=== PATIENT | female | born 1940 | race Caucasian/White ===

== ENCOUNTER 2017-03-27 21:39 | Emergency (ER) | payer OTHER ==
[~2017-03-27] VITALS: Ht 160 cm; Wt 100.3 kg
[~2017-03-27 21:39] MED LIST: AMBIEN10 MG PO; Ambien PO; BUSPAR5 MG PO; Buspar PO; CITALOPRAM HBR20 M1 PO; COMPAZINE10 MG PO; DICLOFENAC SODI75 MG PO; DURAGESIC1 EAC1 TD; Duragesic TD; GLUCOPHAGE500 MG PO; NEXIUM10 MG PO; PRILOSEC20 MG PO; PROCHLORPERAZIN10 MG PO; TOPROL XL50 MG PO; TRIAMTERENE-HC1 EAC1 PO; VOLTAREN75 MG PO; ZYLOPRIM100 MG PO
[2017-03-27 23:17] LABS: HEMATOCRIT 41.2 % (36.0-46.0); MCH 29.8 PG (29.0-34.0); MCHC 33.7 G/DL (30.0-36.0); MCV 88.2 FL (83-99); MEAN PLAT.VOLUME 9.2 uM^3 (9.5-12.4); PLATELET COUNT 293 K/uL (156-360); RBC DIS.WIDTH-CV 13.2 % (11.8-14.6); RBC DIS.WIDTH-SD 42.9 % (39-53); RED BLOOD COUNT 4.67 M/uL (3.80-5.20); WHITE BLOOD COUNT 10.8 K/uL (4.1-10.2)
[2017-03-27 23:18] LABS: ADD MIUA? YES; BILIRUBIN NEGATIVE; BLOOD SMALL; COLOR YELLOW ((YELLOW)); GLUCOSE (STRIP) NEGATIVE; KETONES NEGATIVE; LEUKOCYTES SMALL; NITRITE NEGATIVE; PROTEIN (STRIP) 30; SPECIFIC GRAVITY 1.009 (1.000-1.030); UROBILINOGEN 0.2 MG/DL (0.2-1.0)
[2017-03-27 23:27] LABS: CHLORIDE 97 mEq/L (99-109); POTASSIUM 3.8 mEq/L (3.7-5.4); SODIUM 136 mEq/L (136-147)
[2017-03-27 23:29] LABS: GLUCOSE 190 mg/dL (70-99)
[2017-03-27 23:30] LABS: ANION GAP 14 MEQ/L (2-14)
[2017-03-27 23:31] LABS: TOTAL BILIRUBIN 0.3 mg/dL (0.0-1.0)
[2017-03-27 23:32] LABS: ALKALINE PHOSPHATASE 106 IU/L (3-129)
[2017-03-27 23:33] LABS: GFR ESTIMATE (CALCULATED) 46 mL/min/
[2017-03-27 23:34] LABS: UREA NITROGEN (BUN) 29 mg/dL (9-23)
[2017-03-28 00:07] LABS: ADD MEDTOX COMMENT Y; AMPHETAMINE NEGATIVE (500 ng/mL); BARBITURATES NEGATIVE (200 ng/mL); BENZODIAZEPINES NEGATIVE (150 ng/mL); COCAINE NEGATIVE (150 ng/mL); INTERNAL CONTROLS VALID? YES; METHADONE NEGATIVE (200 ng/mL); METHAMPHETAMINE NEGATIVE (500 ng/mL); OPIATES (MORPHINE) PRESUMPTIVE POSITIVE (100 ng/mL); OXYCODONE NEGATIVE (100 ng/mL); PHENCYCLIDINE NEGATIVE (25 ng/mL); PROPOXYPHENE NEGATIVE (300 ng/mL); THC CANNABINOIDS NEGATIVE (50 ng/mL); TRICYCLIC ANTIDEPRESSANTS NEGATIVE (300 ng/mL)
[2017-03-28 00:38] LABS: BACTERIA RARE /HPF; EPITHELIAL CELLS 1+ /HPF; MUCUS NONE SEEN /LPF; RED BLOOD CELLS 0-5 /HPF (0-5); UCUL ADDED? YES
[2017-03-28] MEDS ORDERED: ZOFRAN ODT4 MG PO (00:42)
[2017-03-28 01:18] VITALS: BP 146/88
== END 2017-03-28 01:19 | disposition home or self-care (01) ==
LOC: EXP 21:39 → EME 21:39 → EXP 03-28 01:19
PROVIDERS: Nurse Practitioner Family
DX: M79.605 Pain in left leg (principal); M79.604 Pain in right leg; M54.9 Dorsalgia, unspecified; G89.29 Other chronic pain; R11.0 Nausea; Z79.891 Long term (current) use of opiate analgesic; E11.9 Type 2 diabetes mellitus without complications; Z79.84 Long term (current) use of oral hypoglycemic drugs; I10 Essential (primary) hypertension; F41.9 Anxiety disorder, unspecified; E78.5 Hyperlipidemia, unspecified; Z88.5 Allergy status to narcotic agent
CPT/HCPCS: 80053; 81003; 84999; 85027; 87086